=== PATIENT | female | born 1945 | race Caucasian/White ===

== ENCOUNTER 2017-02-03 10:35 | Emergency (ER) | payer MEDICARE, BC ==
--- NOTE | 2017-02-03 13:00 | RAD ---
Indication: Bilateral hip pain with ambulation. 3 views of left hip 2 views of the right hip and an AP view the pelvis demonstrates left hip are placement in satisfactory position. No fracture is identified. The femoral component is well-seated. The right hip demonstrates joint space narrowing in the superior compartment with subchondral cyst formation. Osteophyte formation is noted. No fracture is identified. IMPRESSION: DEGENERATIVE CHANGES OF THE RIGHT HIP. Left hip demonstrates left hip replacement.
[2017-02-03 13:01] VITALS: BP 151/99
--- NOTE | 2017-02-03 14:00 | UC ---
General HPI - HPI Summary HPI Summary: ONE WEEK AGO DEVELOPED RASH ON BILATERAL ANKLES, THOUGHT THEY WERE ANT BITES ( PATIENT IS FROM [place]), ITCHED THEM, NOW HAVING REDNESS TO AREA. NO HISTORY OF DIABETES. NO FEVER. ALSO HAS HISTORY OF HIP REPLACEMENT AND BURSITIS. HAS BEEN HAVING BILATERAL HIP PAIN WITH AMBULATION. - History of Current Complaint Chief Complaint: UCGeneralIllness Stated Complaint: RASH JOINT PAIN Time Seen by Provider: 02/03/17 11:56 Hx Obtained From: Patient Onset/Duration: Gradual Onset, Lasting Weeks, Still Present Onset Severity: Mild Current Severity: Mild Pain Intensity: 3 Associated Signs & Symptoms: Negative: Abdominal Pain, Back Pain, Confusion, Cough, Chest Pain, Dizziness, Diaphoresis, Edema, Fever, Headache, Nausea, Palpitations, Syncope, SOB, Vomiting, Wheezing, Weakness - Allergy/Home Medications Allergies/Adverse Reactions: Allergies Allergy/AdvReac Type Severity Reaction Status Date / Time Sulfa Antibiotics Allergy See Comment Verified 02/03/17 10:53 Home Medications: Home Medications Calcium [Elite Calcium] 1 tab PO DAILY 02/03/17 [History Confirmed 02/03/17] Cyanocobalamin TAB* [Vitamin B12 TAB*] 1 tab PO DAILY 02/03/17 [History Confirmed 02/03/17] Gabapentin TAB(NF) [Neurontin 600 mg TAB(NF)] 1 tab PO TID 02/03/17 [History Confirmed 02/03/17] Heart Medication 1 tab PO BID 02/03/17 [History] Heartburn Med 02/03/17 [History] Hydrocodone-Acetaminophen [Hydrocodone/Acetaminophen 5-325 mg] 1 tab PO [History] Meloxicam [Vivlodex] 1 tab PO DAILY 02/03/17 [History Confirmed 02/03/17] Multiple Vitamin [Multi Vitamin] 1 tab PO DAILY 02/03/17 [History Confirmed ] Niacin 1 tab PO DAILY 02/03/17 [History Confirmed 02/03/17] Vitamin E 1 tab PO DAILY WITH MEAL 02/03/17 [History Confirmed 02/03/17] PMH/Surg Hx/FS Hx/Imm Hx Previously Healthy: Yes - Surgical History Surgical History: Yes Surgery Procedure, Year, and Place: left knee replacement. left hip replacement. right and left shoulder replacement. shoulder rotator cuff - Family History Known Family History: Negative: Blood Disorder - Social History Occupation: Retired Alcohol Use: Occasionally Substance Use Type: None Smoking Status (MU): Never Smoked Tobacco Review of Systems Constitutional: Negative Skin: Rash Eyes: Negative ENT: Negative Respiratory: Negative Cardiovascular: Negative Gastrointestinal: Negative Genitourinary: Negative Motor: Negative Neurovascular: Negative Musculoskeletal: Arthralgia, Myalgia Neurological: Negative Psychological: Negative All Other Systems Reviewed And Are Negative: Yes Physical Exam Triage Information Reviewed: Yes Appearance: Well-Appearing, No Pain Distress, Well-Nourished, Obese Vital Signs: Initial Vital Signs Temp 98.3 F 02/03/17 10:58 Pulse 76 02/03/17 10:58 Resp 18 02/03/17 10:58 BP 201/109 02/03/17 10:58 Pulse Ox 99 02/03/17 10:58 Eye Exam: Normal ENT Exam: Normal ENT: Positive: Normal ENT inspection Dental Exam: Normal Neck exam: Normal Neck: Positive: Supple, Nontender, No Lymphadenopathy Respiratory Exam: Normal Respiratory: Positive: Chest non-tender, Lungs clear, Normal breath sounds, No respiratory distress Cardiovascular Exam: Normal Cardiovascular: Positive: RRR, No Murmur Abdominal Exam: Normal Musculoskeletal Exam: Normal Musculoskeletal: Positive: Strength Intact, ROM Intact Neurological Exam: Normal Psychological Exam: Normal Skin: Positive: rashes - ERRYTHEMA BILATERAL LEGS Course/Dx - Differential Dx - Multi-Symptom Differential Diagnoses: Metabolic Abnormality, Urinary Tract Infection Provider Diagnoses: BILATERAL LEG CELLULITIS; HIP ARTHRITIS Discharge - Discharge Plan Condition: Stable Disposition: HOME Prescriptions: Cephalexin CAP* [Keflex CAP*] 500 mg PO QID #40 cap Patient Education Materials: Cellulitis (ED), Hypertension (ED), Hip Pain (ED) , Arthritis (ED) Referrals: [facility] [place] [facility]IAN REFERRAL [Outside] No Primary Care Phys,NOPCP [Primary Care Provider] - Additional Instructions: ELEVATED BLOOD PRESSURE: TODAY DURING CLINICAL EVALUATION YOUR BLOOD PRESSURE WAS NOTED TO BE ELEVATED. TODAY IT WAS __151___/___99___; NORMAL BLOOD PRESSURE IS 120/80. PLEASE SET AN APPOINTMENT WITHIN THE NEXT WEEK WITH YOUR PRIMARY CARE PROVIDER (OR PROMPTLY ESTABLISH PRIMARY CARE) REGARDING PROMPT RE- EVALUATION OF THIS CONCERN. HIGH BLOOD PRESSURE IS THE MOST COMMON AND HIGHLY IMPORTANT RISK FACTOR FOR THE FOLLOWING: HEART FAILURE, HEART ATTACK ( MYOCARDIAL INFARCTION), INTRACEREBRAL HEMORRHAGE, ISCHEMIC & NONISCHEMIC STROKES , WELL CHRONIC KIDNEY DISEASE AND END STAGE RENAL DISEASE. PLEASE CONSULT AND DISCUSS MANAGEMENT OF THIS FINDING WITH YOUR PRIMARY CARE PHYSICIAN. Images Front/Back of Body, Lg ([place]): 1 - ERRYTHEMA 3CM X 4CM 2 - ERRYTHEMA 3CM X 3CM
== END 2017-02-03 13:20 | disposition home or self-care (01) ==
LOC: UCEAST 10:35
DX: L03.116 Cellulitis of left lower limb (principal); L03.115 Cellulitis of right lower limb; M16.11 Unilateral primary osteoarthritis, right hip; Z96.642 Presence of left artificial hip joint; Z88.2 Allergy status to sulfonamides
CPT/HCPCS: 73523; 99202; G0463